=== PATIENT | female | born 1975 | race Hispanic/Latino ===

== ENCOUNTER 2018-04-06 10:13 | Outpatient (CLI) | payer OTHER ==
--- NOTE | 2018-04-07 08:05 | Ultrasound Report ---
ULTRASOUND ABDOMEN COMPLETE: TECHNIQUE: Transabdominal ultrasound with color Doppler interrogation. HISTORY: Right upper quadrant pain, functional dyspepsia. COMPARISON: none. FINDINGS: LIVER: Normal. BILIARY SYSTEM: There appears to be a small amount of sludge in the gallbladder. No shadowing gallstones are identified. The gallbladder is not distended. Normal wall thickness. No pericholecystic fluid. The CBD measures 3.2 mm. PANCREAS: Normal. SPLEEN: Normal. 8.5 cm in length. KIDNEYS: Normal. AORTA/IVC: Normal. ASCITES: None. IMPRESSION: Small amount of sludge in the gallbladder. No evidence for acute cholecystitis or biliary dilatation. Otherwise normal exam.
== END 2018-04-06 10:14 | disposition home or self-care (01) ==
LOC: US 10:13
PROVIDERS: ATTEND Internal Medicine Gastroenterology
DX: R10.11 Right upper quadrant pain (principal); K30 Functional dyspepsia
CPT/HCPCS: 76700